=== PATIENT | male | born 1955 | race American Indian/Alaskan Native ===

== ENCOUNTER 2016-11-10 14:11 | Emergency (ER) | payer OTHER ==
[2016-11-10 14:12] VITALS: BMI 32.8
[2016-11-10 14:41] VITALS: TEMP 98.6
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
[2016-11-10] MEDS ORDERED: HYDROmorphone 0.5 mg/0.5 ml ISec IVP STA (16:36)
[2016-11-10 16:53] VITALS: BP 132/74; PULSE 76; RESP 18; O2SAT 98
== END 2016-11-10 16:56 | disposition home or self-care (01) ==
LOC: ED 14:11
DX: M54.5 Low back pain (principal); M79.1 Myalgia

== ENCOUNTER 2018-11-11 08:59 | Outpatient (CLI) | payer OTHER | END 2018-11-11 09:00 | disposition home or self-care (01) | LOC: CARDIO 08:59 ==

== ENCOUNTER 2018-12-22 11:23 | Outpatient (CLI) | payer OTHER | END 2018-12-22 11:24 | disposition home or self-care (01) | LOC: RAD 11:23 ==